=== PATIENT | male | born 1965 | race Caucasian/White ===

== ENCOUNTER → 2018-10-29 | Outpatient (CLI) | payer OTHER ==
--- NOTE | 2018-11-05 11:46 | P.ARTDOP ---
Arterial Doppler LOWER EXTREMITY ARTERIAL DOPPLER: DATE OF SERVICE: 10/29/2018 Reason for study: Painful left foot. Doppler waveforms: Multiphasic throughout on the right. Multiphasic at the left femoral and popliteal and atypical below.. Pulse volume recording: []. Pressure gradients: Across the knee on the left. Ankle-brachial indices: Greater than 1 on the right and 0.67 on the left. Toe pressures: [] on the right, [] on the left Impression: Normal right. Moderate left fem-pop disease. Clinical correlation recommended..
== END ==
LOC: RADUSWWP 13:13
PROVIDERS: ATTEND Family Medicine
DX: I73.9 Peripheral vascular disease, unspecified (principal)
CPT/HCPCS: 93922

== ENCOUNTER → 2018-11-10 | Outpatient (CLI) | payer OTHER | LOC: RADUSWWP 07:35 | PROVIDERS: ATTEND Family Medicine | DX: Z53.9 Procedure and treatment not carried out, unspecified reason (principal) ==

== ENCOUNTER → 2018-12-31 | Outpatient (CLI) | payer OTHER | END | disposition home or self-care (01) | LOC: LABWHC1 16:03 | PROVIDERS: ATTEND Surgery | DX: Z01.812 Encounter for preprocedural laboratory examination (principal); I77.1 Stricture of artery; I74.3 Embolism and thrombosis of arteries of the lower extremities | CPT/HCPCS: 36415; 80051; 85025; 85610; 86850; 86900; 86901 ==

== ENCOUNTER 2019-01-02 13:13 | Day surgery (SDC) | payer OTHER ==
[2018-12-30 16:48] VITALS: BMI 26.6
[2018-12-31 17:30] LABS: Basophils # (A) 0.1 k/uL (0-0.2); Basophils % (A) 1 %; Eosinophils # (A) 0.2 k/uL (0-0.7); Eosinophils % (A) 2 %; HCT 45.5 % (39.0-53.0); HGB 15.6 gm/dL (13.0-17.5); Lymphocytes # (A) 2.7 k/uL (1.0-4.8); Lymphocytes % (A) 25 %; MCH 28.6 pg (25.0-35.0); MCHC 34.3 g/dL (31.0-37.0); MCV 83.3 fL (80.0-100.0); Mean Platelet Volume 7.1; Monocytes # (A) 0.7 k/uL (0-1.0); Monocytes % (A) 6 %; Neutrophils % (A) 65 %; Platelet Count 327 k/uL (150-450); RBC 5.47 m/uL (4.30-5.90); RDW 15.1 % (11.5-15.5); WBC 10.8 k/uL (3.8-10.6)
[2018-12-31 18:00] LABS: Prothrombin Time 10.3 sec (9.0-12.0)
[2018-12-31 23:01] LABS: Anion Gap 8.4 mmol/L (4.00-12.00); Carbon Dioxide 24.6 mmol/L (21.6-31.8)
[2019-01-02 07:12] VITALS: RESP 16; TEMP 98
[2019-01-02 07:30] LABS: African American GFR (CKD) >90 (>60 ml/min/1.73 sqM); Anion Gap 9 mmol/L; Blood Urea Nitrogen 12 mg/dL (9-20); Calcium 9.2 mg/dL (8.4-10.2); Carbon Dioxide 24 mmol/L (22-30); Chloride 108 mmol/L (98-107); Glucose 109 mg/dL (74-99); Potassium 4.1 mmol/L (3.5-5.1); Sodium 141 mmol/L (137-145)
--- NOTE | 2019-01-02 09:17 | P.OP ---
Date of Procedure: 01/02/19 Preoperative Diagnosis: left lower extremity disabiling claudication Isabella 3 left lower extremity SFA CREDIT ADMINISTRATION MANAGER Postoperative Diagnosis: Left lower extremity disabiling claudication Resolved left lower extremity SFA CREDIT ADMINISTRATION MANAGER Procedure(s) Performed: Left lower extremity percutaneous atherectomy of SFA with Hawk One device Left lower extremity PTBA of the SFA Left lower extremity SFA [id number] everflex self expandable stent placement Aortogram with selective left lower extremity femoral, tibial artery angiogram Right common femoral artery ultrasound guided access Implants: [id number] Everflex stent Anesthesia: local, other (moderate sedation x 68 minutes) Surgeon: Donavon Ambriz Estimated Blood Loss (ml): 5 IV fluids (ml): 100 Pathology: none sent Condition: stable Disposition: same day Indications for Procedure: 53 year old gentleman with history of left lower extremity pain with ambulation after only 50-100 feet. He recently had dopplers which demonstrated LEONORA of 0.67 on the left and therefore he had a catheter directed angiogram by Dr. 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 He states his pain is so severe that it is affecting his work and home life and presents today for atherectomy, balloon angioplasty and possible stenting. Operative Findings: 80cm chronic total occlusion at the mid SFA Description of Procedure: After written informed consent was obtained the patient all risks benefits and competitions were described the patient is brought to the Cw Operator and laid in a supine position. The area of the groins were prepped and draped in usual sterile fashion. Procedure was performed under moderate sedation with Versed and fentanyl and he was monitored with continuous pulse ox monitoring and EKG. Utilizing ultrasound the right common femoral artery was visualized shown to be patent without any significant plaque and with Seldinger technique a 6-Bahraini sheath was placed in normal fashion under ultrasound guidance and retrograde angiogram of the aortic bifurcation and iliac system was obtained.. 035 Glidewire was then placed followed by a rim catheter and the left common iliac was accessed with the 035 Glidewire. Quick cross catheter was then placed after removal of the rim catheter and the 035 Glidewire was exchanged for a guidewire advantage. A 7-Bahraini rabies sheath was then placed over this wire into appropriate position just above the bifurcation of the superficial femoral artery. Patient was then administered 5000 units of heparin and followed with serial ACTs. Selective angiogram was obtained of the left lower extremity demonstrating chronic total occlusion of the superficial femoral artery extending from approximately 80 cm. 035 Glidewire followed by a quick cross catheter was then utilized to cross this lesion. Once across the lesion the quick cross catheter was used for selective angiogram which demonstrated good intraluminal access. A 7-Bahraini Hawk one LS atherectomy device was then placed and directional atherectomy was performed in 4 directions. Once completed and gram was obtained which demonstrated improvement of the lumen with small area of dissection. Balloon angioplasty was then performed with a 6 x 60 cm balloon. Once completed and gram was once again performed demonstrating a dissection at the superior aspect of the CREDIT ADMINISTRATION MANAGER extending slightly to the midportion. There was still some mild disease which was noted at that time due to the dissection a stent was chosen to be placed. A 6 x 100 cm abdominal plaque stent was then deployed across the lesion in normal fashion. Balloon angioplasty was then performed through the stent. Final angiogram was obtained demonstrating complete resolution of the CREDIT ADMINISTRATION MANAGER with good brisk flow to the distal aspect of the leg and two-vessel runoff to the foot. All guidewires and catheters were then removed patient was administered 20 mg of protamine to reverse the heparin which demonstrated an ACT of 269 prior to administration. Sheath was removed and pressure was placed for hemostasis. Hemostasis was obtained. The patient tied that she well and will be sent to recovery. Patient had a palpable bilateral DP and PT pulse at the conclusion of the procedure. Plan - Discharge Summary Discharge Rx Participant: Yes New Discharge Prescriptions: No Action amLODIPine [Norvasc] 10 mg PO DAILY Varenicline [Chantix Continuing Pack] 1 mg PO BID Ranitidine HCl [Zantac] 150 mg PO BID PRN PRN Reason: Heartburn Pravastatin Sodium [Pravachol] 1 tab PO DAILY Clopidogrel [Plavix] 1 tab PO DAILY Discharge Medication List Ranitidine HCl [Zantac] 150 mg PO BID PRN 12/30/18 [History] Varenicline [Chantix Continuing Pack] 1 mg PO BID 12/30/18 [History] amLODIPine [Norvasc] 10 mg PO DAILY 12/30/18 [History] Clopidogrel [Plavix] 1 tab PO DAILY 01/02/19 [History] Pravastatin Sodium [Pravachol] 1 tab PO DAILY 01/02/19 [History] Follow up Appointment(s)/Referral(s): Donavon Ambriz DO [STAFF PHYSICIAN] - 2 Weeks Patient Instructions/Handouts: Peripheral Vascular Stent Placement (DC) Activity/Diet/Wound Care/Special Instructions: No driving x 48 hours No heavy lifting >15lbs x48 hours Ok to return to work next week. Discharge Disposition: HOME SELF-CARE
--- NOTE | 2019-01-02 09:39 | CONS ---
CONSULTATION The patient has history of disabling claudication of the left leg. He can walk short distances and then he has to stop. The patient had a angiogram done which showed the left superficial femoral artery is totally occluded at Ten canal and infrapopliteal vessels are good flow from the collaterals. The patient's options were discussed. I did discuss with Dr. Donavon Ambriz probably for atherectomy and possible balloon stent. We did the venous mapping. Greater saphenous vein is open. PAST MEDICAL HISTORY: No history of diabetes. Patient has history of hypertension, controlled with medication. PHYSICAL EXAMINATION: On examination femorals are 1+ bilateral, posterior tibialis, dorsalis pedis by the Doppler. IMPRESSION: SFA total occlusion at Ten's canal with a history of hypertension. The patient will go for atherectomy with balloon angioplasty, possible stent by Dr. Donavon Ambriz. Risks and complications discussed. Thank you very much for the consultation. MMODL / IJN: [id number] /
[~2019-01-02 13:13] MED LIST: ASPIRIN 325 MG TAB ONE; ASPIRIN 325 MG TAB PO STA; CLOPIDOGREL 75 MG TAB PO ONE; IOPAMIDOL-300 50ML BTL INJ ONE; LIDOCAINE 1% (PF) 10 MG/ML (30 ML SDV) SQ ONE; MIDAZOLAM (PF) 2 MG/2 ML VIAL IVP ONE; PROTAMINE SULFATE 10 MG/ML 5 ML VIAL IV ONE; Pre Op ABX Message 1 EACH MISC MISCELLANE ONE; SODIUM CHLORIDE 0.9% 1,000 ML IV ONE; fentaNYL (PF) 50 MCG/ML 2 ML AMP IVP ONE
[2019-01-02 15:50] VITALS: BP 141/71; PULSE 71
--- NOTE | 2019-01-02 16:57 | IR ---
EXAMINATION TYPE: IR seating captain femoral popliteal DATE OF EXAM: 01/02/2019 COMPARISON: NONE HISTORY: Fluoroscopy time. Fluoroscopy was provided to the referring clinician.
--- NOTE | 2019-01-26 06:59 | P.GSHP ---
History of Present Illness H&P Date: 01/02/19 Chief Complaint: LLE pain 53 year old male with left lower extremity pain and claudication only able to ambulate 50-100 feet without significant pain presents for percutaneous revascularization. He denies any fevers, chills, nausea, vomiting, chest pain or shortness of breath. Past Medical History Past Medical History: GERD/Reflux, Hypertension, Vascular Disorder History of Any Multi-Drug Resistant Organisms: None Reported Additional Past Surgical History / Comment(s): aortogram, wisdom teeth removed Past Anesthesia/Blood Transfusion Reactions: No Reported Reaction Smoking Status: Current every day smoker - Past Family History Mother Family Medical History: No Reported History Medications and Allergies Home Medications Medication Instructions Recorded Confirmed Type Ranitidine HCl [Zantac] 150 mg PO BID PRN 12/30/18 01/02/19 History Varenicline [Chantix Continuing 1 mg PO BID 12/30/18 01/02/19 History Pack] amLODIPine [Norvasc] 10 mg PO DAILY 12/30/18 01/02/19 History Clopidogrel [Plavix] 1 tab PO DAILY 01/02/19 01/02/19 History Pravastatin Sodium [Pravachol] 1 tab PO DAILY 01/02/19 01/02/19 History Allergies Allergy/AdvReac Type Severity Reaction Status Date / Time No Known Allergies Allergy Verified 12/30/18 12:27 Surgical - Exam Vital Signs Temp Pulse Resp BP Pulse Ox 98 F 63 16 146/73 98 01/02/19 07:10 01/02/19 07:10 01/02/19 07:10 01/02/19 07:10 01/02/19 07:10 non palpable DP or PT pulses in the left lower extremity. Palpable femoral pulses bilaterally. - General well developed, well nourished, no distress - Eyes PERRL, normal ocular movement - ENT normal pinna - Neck no masses, no bruits - Respiratory normal expansion - Cardiovascular Rhythm: regular - Abdomen Abdomen: soft, non tender - Integumentary no rash - Neurologic normal coordination - Psychiatric oriented to time, oriented to person, oriented to place Results - Labs 12/31/18 16:25 01/02/19 07:08 Assessment and Plan Assessment: LLE disabiling claudication Plan: To labor economics teacher for left lower extremity revascularization.
== END 2019-01-02 15:37 | disposition home or self-care (01) ==
LOC: CATHCVL 13:13
PROVIDERS: ATTEND Surgery
DX: I70.212 Atherosclerosis of native arteries of extremities with intermittent claudication, left leg (principal); I70.92 Chronic total occlusion of artery of the extremities; I10 Essential (primary) hypertension; K21.9 Gastro-esophageal reflux disease without esophagitis; F17.200 Nicotine dependence, unspecified, uncomplicated; Z79.02 Long term (current) use of antithrombotics/antiplatelets; Z79.83 Long term (current) use of bisphosphonates; Z79.899 Other long term (current) drug therapy
CPT/HCPCS: 37227; 86900; 86901; 80051; 80048; 85025; 85610; 86850; 36415; C1894 ×3; C1769 ×4; C1725; C1887; C1876; C1714; C1884; J2720; J2001; J3010; J1644; Q9967; J2250

== ENCOUNTER → 2022-02-01 | Outpatient (CLI) | payer BC ==
--- NOTE | 2022-02-01 14:02 | MR ---
EXAMINATION TYPE: MR knee LT wo con DATE OF EXAM: 02/01/2022 COMPARISON: None HISTORY: Left knee pain, locking, and swelling for 1 month TECHNIQUE: Multiplanar, multisequence imaging of the left knee is performed without IV contrast. FINDINGS: MEDIAL MENISCUS: Anterior and posterior horns are intact without tear. LATERAL MENISCUS: Anterior and posterior horns are intact without tear. CRUCIATE LIGAMENTS: Mild increased signal ACL could reflect ACL strain. There is no evidence for tear . PCL is intact. COLLATERAL LIGAMENTS: The medial collateral ligament and lateral collateral ligament complex are inta ct and unremarkable. EXTENSOR MECHANISM: Visualized quadriceps and patellar tendons are intact. EFFUSION: No significant suprapatellar joint effusion. POPLITEAL CYST: No popliteal/bain cyst. TRICOMPARTMENT SPACES: Intact CARTILAGE: Small focal cartilaginous defect medial femoral condyle at its midportion measuring 3.5 mm tiny loose body suggested. BONE MARROW SIGNAL: No focal abnormal marrow signal is appreciated. OTHER: No additional significant abnormality is appreciated. IMPRESSION: 1.Small focal cartilaginous defect medial femoral condyle at its midportion measuring 3.5 mm tiny loo se body suggested. 2.Mild increased signal ACL could reflect ACL strain. There is no evidence for tear.
== END | disposition home or self-care (01) ==
LOC: RADMRIMAIN 11:46
PROVIDERS: ATTEND Family Medicine
DX: M25.562 Pain in left knee (principal)

== ENCOUNTER 2024-12-11 13:15 | Emergency (ER) | payer BC, MEDICARE ==
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
[2024-12-11 15:09] VITALS: BP 148/76; PULSE 69; RESP 18; TEMP 98
== END 2024-12-11 15:06 | disposition home or self-care (01) ==
LOC: EC 13:15
DX: S20.219A Contusion of unspecified front wall of thorax, initial encounter (principal); F17.200 Nicotine dependence, unspecified, uncomplicated; Z79.02 Long term (current) use of antithrombotics/antiplatelets; V49.40XA Driver injured in collision with unspecified motor vehicles in traffic accident, initial encounter; Y92.410 Unspecified street and highway as the place of occurrence of the external cause
CPT/HCPCS: 71046; 93005; 99284